=== PATIENT | female | born 1935 | race African-American/Black ===

== ENCOUNTER 2017-02-02 12:34 | Emergency (ER) | payer OTHER ==
[~2017-02-02] VITALS: Ht 160 cm; Wt 70.0 kg
[~2017-02-02 12:34] MED LIST: AMLO10 PO; ASPI81 PO; AZIT250T74 PO; CALTTAB2 PO; IRON SUPPLEMENT PO; LORT5TAB PO; LOVA1TAB47 PO; PREV30CA36 PO; PRIN20TA2 PO; VITA100T15 PO; XYZA5TAB2 PO
[2017-02-02 12:37] VITALS: BP 153/71; PULSE 94; RESP 16; TEMP 97.7; O2SAT 95
--- NOTE | 2017-02-02 12:40 | PD ---
Physical Exam Time Seen by Provider: 12:38 Narrative 81-year-old female with complaint of left arm pain 2 weeks. Denies injury. Pain is from the left shoulder to the elbow. Denies chest pain or shortness breath. Patient seen in triage. Vital signs reviewed. Patient taken to medical bed. Data Data Last Documented VS Vital Signs Date Time Temp Pulse Resp B/P (MAP) Pulse Ox O2 Delivery O2 Flow Rate FiO2 02/02/17 12:37 97.7 94 16 153/71 (98) 95 MDM Supervised Visit with MARCUS: Aylin Willoughby Feb 02, 2017 12:39
[2017-02-02] MEDS ORDERED: CEPH-460 PO (13:57)
--- NOTE | 2017-02-02 13:57 | PD ---
HPI Chief Complaint: Pain: Acute or Chronic Time Seen by Provider: 12:42 Travel History International Travel<30 days: No Contact w/Intl Traveler<30days: No Traveled to known affect area: No History of Present Illness HPI And 81 year-old woman presents emergent part of left shoulder pain. Is been ongoing for a while. In the left anterior shoulder left brachium. She also has a painful red foot and erythema. History Past Medical History Narrative Medical History of breast cancer GERD Hypertension COPD Influenza Vaccination: No Menopausal: Yes Social History Alcohol Use: No Tobacco Use: No Allergies-Medications (Allergen,Severity, Reaction): Coded Allergies: methylprednisolone (Unverified Allergy, Severe, THROAT, FACIAL, BILATERAL EYE SWELLING, 02/02/17) naproxen (Unverified Allergy, Severe, 02/02/17) tramadol (Verified Allergy, Severe, THROAT SWELLING, 02/02/17) mometasone furoate (Verified Allergy, Intermediate, FACIAL SWELLING, ) diatrizoate meglumine (Unverified Allergy, Mild, 02/02/17) gadobenic acid (Unverified Allergy, Mild, 02/02/17) gadodiamide (Unverified Allergy, Mild, 02/02/17) gadoteridol (Unverified Allergy, Mild, 02/02/17) iodixanol (Unverified Allergy, Mild, 02/02/17) iohexol (Unverified Allergy, Mild, 02/02/17) azithromycin (Verified Allergy, Unknown, 02/02/17) Reported Meds & Prescriptions Reported Meds & Active Scripts Active Lortab 5/500 (Acetaminophen/Hydrocodone Bitart) 5 Mg/500 Mg Tab 1 Tab PO Q6HPRN FOR PAIN Reported Zithromax (Azithromycin) 250 Mg Tab 250 Mg PO DIRECTED UNKNOWN DOSE Caltrate 600/Vitamin D 400 (Calcium/Vitamin D) 1 Tab Tab 1 Tab PO DAILY UNKNOWN DOSE [Iron Supplement] 1 Tab PO DAILY Vitamin B12 (Cyanocobalamin) 100 Mcg Tab 0 PO DAILY UNKNOWN DOSE Xyzal (Levocetirizine) 5 Mg Tab 5 Mg PO HS Mevacor (Lovastatin) 20 Mg Tab 20 Mg PO DAILY Prevacid (Lansoprazole) 30 Mg Capcr 30 Mg PO DAILY Aspirin 81 Mg Tab 81 Mg PO DAILY Prinivil (Lisinopril) 20 Mg Tab 20 Mg PO DAILY Norvasc (Amlodipine Besylate) 10 Mg Tab 10 Mg PO DAILY Review of Systems Except as stated in HPI: all other systems reviewed are Neg Physical Exam Narrative GENERAL: Well-appearing 81 year-old woman, no acute distress. SKIN: Warm and dry. CARDIOVASCULAR: Warm and well perfused. RESPIRATORY: Normal rate and effort. MUSCULOSKELETAL: Grossly normal appearance of the left shoulder. She has pain with any range of motion of the shoulder particularly of flexing above the horizontal. Passive range of motion without significant pain. No bony deformity. On the right foot she is a little bit erythema redness laterally and some tenderness there as well. Little bit warm. NEUROLOGICAL: Awake and alert. No gross deficits. Data Data Last Documented VS Vital Signs Date Time Temp Pulse Resp B/P (MAP) Pulse Ox O2 Delivery O2 Flow Rate FiO2 02/02/17 12:37 97.7 94 16 153/71 (98) 95 Orders Orders Shoulder, Complete (>2vws) (02/02/17 ) [facility] Medical Decision Making Medical Screen Exam Complete: Yes Emergency Medical Condition: Yes Differential Diagnosis Shoulder pain, cellulitis, other Narrative Course Medical decision-making new para state year-old woman with left anterior shoulder pain. I suspect some sort of impingement syndrome or arthritis. The right foot also has evidence of very early cellulitis. We'll check x-ray of the shoulder. Recommend supportive treatment. Diagnosis Primary Impression: Left anterior shoulder pain Additional Impression: Cellulitis of foot Patient Instructions: General Instructions Additional Instructions: Take antibiotics as prescribed. Use acetaminophen as needed for pain.. Follow-up with her doctor in the next 2-4 days. Med/Other Pt SpecificInfo: Prescription(s) given Scripts Cephalexin (Keflex) 500 Mg Cap 500 MG PO Q8H for Infection, #30 CAP 0 Refills Prov: Ghassan Brown MD 02/02/17 Disposition: 01 DISCHARGE HOME Condition: Stable Ghassan Brown MD Feb 02, 2017 13:57
--- NOTE | 2017-02-02 13:58 | RADRPT ---
EXAM DATE/TIME: 02/02/2017 13:43 [facility] COMPARISON: No previous studies available for comparison. INDICATIONS : Left shoulder pain with any motion, no known injury. MEDICAL HISTORY : Carcinoma, breast. SURGICAL HISTORY : Breast biopsy. ENCOUNTER: Initial ACUITY: 3 days PAIN SCORE: 7/10 LOCATION: Left shoulder FINDINGS: There is osteophyte formation along the undersurface of the acromioclavicular joint and humeral head. No fracture or dislocation. Left axillary clips. CONCLUSION: Degenerative changes. Dontae Chow MD on February 02, 2017 at 13:56 Board Certified Radiologist. This report was verified electronically.
== END 2017-02-02 14:38 | disposition home or self-care (01) ==
LOC: NEPD 12:34
DX: M25.512 Pain in left shoulder (principal); M79.602 Pain in left arm; L03.115 Cellulitis of right lower limb
CPT/HCPCS: 73030; 99283

== ENCOUNTER 2017-02-05 13:49 | Emergency (ER) | payer OTHER ==
[~2017-02-05] VITALS: Ht 152.4 cm; Wt 71.0 kg
[~2017-02-05 13:49] MED LIST changes: +CEPH-460 PO
[2017-02-05 13:52] VITALS: BP 143/68; PULSE 99; RESP 17; TEMP 99.2; O2SAT 96
[2017-02-05] MEDS ORDERED: ACETAMINOPHEN/HYDROcodone 325 MG/5 MG TAB PO ONE (16:00)
[2017-02-05] MEDS ORDERED: HYDR-3533 PO (16:02)
--- NOTE | 2017-02-05 16:14 | PD ---
HPI Chief Complaint: Musculoskeletal Complaint Time Seen by Provider: 15:41 Travel History International Travel<30 days: No Contact w/Intl Traveler<30days: No Traveled to known affect area: No History of Present Illness HPI Patient comes back to the emergency department complaining of continued left shoulder pain. Patient is going on for a while. Patient states she spoke to her primary care doctor and the fifth of this month regarding this incase she needed a referral to her sap manager but did not get one. Patient was seen in the emergency department 3 days ago for the same complaint and had a complete workup at that time told that it was arthritis. Patient states she's been taking Tylenol using heat with little relief for symptoms. Last night patient reports using ice that allowed the pain to ease up enough that she is able to go to sleep. Patient denies any numbness or tingling. Pain is worse with certain movement of her left shoulder. Patient denies any injury, chest pain, shortness of breath, fevers, nausea, vomiting, knew numbness or tingling, or back pain. PFSH Past Medical History Blood Disorders: No Anxiety: No Depression: No Cancer: No Cardiovascular Problems: Yes High Cholesterol: Yes Chemotherapy: No COPD: Yes Diminished Hearing: Yes (BILAT HEARING AIDS) Endocrine: No Gastrointestinal Disorders: Yes (ACI REFLUX AND DIVERTICULITIS) GERD: Yes Glaucoma: Yes Genitourinary: No Hypertension: Yes Immune Disorder: No Musculoskeletal: Yes Neurologic: Yes (NEUROPATHY) Psychiatric: No Reproductive: Yes (CSECTION AND HYSTERECTOMY) Respiratory: Yes Radiation Therapy: No Tetanus Vaccination: > 5 Years Influenza Vaccination: Yes Menopausal: Yes Past Surgical History Abdominal Surgery: Yes (JI 1990) AICD: No Cardiac Surgery: No Section: Yes Cholecystectomy: Yes (1990) Eye Surgery: Yes (CATARACT REMOVED FROM BOTH EYES) Gynecologic Surgery: Yes Hysterectomy: Yes Pacemaker: No Thoracic Surgery: No Other Surgery: Yes (COLON POLYPS REMOVED / BREAST LUMPECTOMY) Social History Alcohol Use: No Tobacco Use: No Substance Use: No Allergies-Medications (Allergen,Severity, Reaction): Coded Allergies: methylprednisolone (Unverified Allergy, Severe, THROAT, FACIAL, BILATERAL EYE SWELLING, 02/05/17) naproxen (Unverified Allergy, Severe, 02/05/17) tramadol (Verified Allergy, Severe, THROAT SWELLING, 02/05/17) mometasone furoate (Verified Allergy, Intermediate, FACIAL SWELLING, ) diatrizoate meglumine (Unverified Allergy, Mild, 02/05/17) gadobenic acid (Unverified Allergy, Mild, 02/05/17) gadodiamide (Unverified Allergy, Mild, 02/05/17) gadoteridol (Unverified Allergy, Mild, 02/05/17) iodixanol (Unverified Allergy, Mild, 02/05/17) iohexol (Unverified Allergy, Mild, 02/05/17) azithromycin (Verified Allergy, Unknown, 02/05/17) Reported Meds & Prescriptions Reported Meds & Active Scripts Active Lortab (Hydrocodone-Acetaminophen) 5-325 Mg Tab 1 Tab PO Q8HR PRN Review of Systems Except as stated in HPI: all other systems reviewed are Neg Physical Exam Narrative GENERAL: Well-developed, overly nourished, in no acute distress, and non-ill appearing. SKIN: Focused skin assessment warm and dry. HEAD: Atraumatic. Normocephalic. EYES: Pupils equal and round. EOMI. No scleral icterus. No injection or drainage. ENT: No nasal bleeding or discharge. Mucous membranes pink and moist. NECK: Trachea midline. Supple. No nuclear rigidity. CARDIOVASCULAR: Radial pulses 2+, intact, and equal bilaterally. Capillary refill less than 2 seconds. RESPIRATORY: No accessory muscle use. No respiratory distress. MUSCULOSKELETAL: No obvious deformities. No clubbing. No cyanosis. No edema. Decreased range of motion left shoulder secondary to pain. Patient reports to palpation anterior aspect of left shoulder. NEUROLOGICAL: Awake and alert. No obvious cranial nerve deficits. Motor grossly within normal limits. Normal speech. PSYCHIATRIC: Appropriate mood and affect; insight and judgment normal. Data Data Last Documented VS Vital Signs Date Time Temp Pulse Resp B/P (MAP) Pulse Ox O2 Delivery O2 Flow Rate FiO2 02/05/17 13:52 99.2 99 17 143/68 (93) 96 Room Air Orders Orders Acetamin-Hydrocod 325-5 Mg ([place] 5-325 (02/05/17 16:00) Electrocardiogram (02/05/17 15:34) MDM Medical Decision Making Medical Screen Exam Complete: Yes Emergency Medical Condition: Yes Medical Record Reviewed: Yes Interpretation(s) EKG reviewed by Dr. Miller shows sinus rhythm ventricular rate of 90. No STEMI Differential Diagnosis Musculoskeletal pain, arthritis, bursitis, frozen shoulder, other Narrative Course The patient presented complaining of shoulder pain. There was no history of recent fall or trauma. No fevers or other evidence to suspect infectious processes, abscess, osteomyelitis etc. I suspect the pain is mechanical in nature. Clinical suspicion, plan of care and management was discussed with the patient. The patient was instructed to follow up with their health care provider. The patient was also instructed to return if the pain worsened, changed, chest pain, breath, fevers, or developed weakness. The patient agreed with plan. Patient in no obvious distress upon re-evaluation. Discussed patient with Dr. Miller prior to discharge, who is in agreement with plan of care and disposition. Patient was asked if they wanted to speak to my attending, which the patient did not wish to do at this time. Any questions/concerns in reference to patient diagnosis/condition discussed and clarified prior to patient's discharge. Reinforced sheer importance of close follow up with patient's primary physician or primary care clinic. Instructed patient to return to ED immediately, if symptoms return/worsen. Patient showed understanding of above instructions. Further instructions and recommendations were detailed in discharge paperwork. Patient left without difficulty out of ED at discharge. Diagnosis Primary Impression: Left shoulder pain Qualified Codes: M25.512 - Pain in left shoulder; G89.29 - Other chronic pain Patient Instructions: Adhesive Capsulitis (ED), General Instructions, Shoulder Pain (ED) Additional Instructions: Follow-up with your primary care physician and/or orthopedics next week for reevaluation. Take all medication as prescribed. Return to the emergency department if symptoms get worse. Med/Other Pt SpecificInfo: Prescription(s) given Scripts Hydrocodone-Acetaminophen (Lortab) 5-325 Mg Tab 1 TAB PO Q8HR Y for PAIN GREATER THAN 7, #7 TAB 0 Refills Prov: Jenni Miller MD 02/05/17 Disposition: 01 DISCHARGE HOME Condition: Stable Vikram Patel Feb 05, 2017 16:14
--- NOTE | 2017-02-05 16:47 | EKG ---
Date Performed: 02/05/2017 Time Performed: 15:34:20 PTAGE: 81 years EKG: Sinus rhythm POSSIBLE LEFT ATRIAL ENLARGEMENT LEFT AXIS DEVIATION ABNORMAL ECG PREVIOUS TRACING : 03/22/2009 12.31 Compared to previous tracing, heart rate has increased. DOCTOR: Elia Neumann Interpretating Date/Time 02/05/2017 16:46:20
== END 2017-02-05 22:19 | disposition home or self-care (01) ==
LOC: NEPE 13:49
DX: M25.512 Pain in left shoulder (principal); M75.02 Adhesive capsulitis of left shoulder; G89.29 Other chronic pain; R94.31 Abnormal electrocardiogram [ECG] [EKG]; I10 Essential (primary) hypertension; E78.00 Pure hypercholesterolemia, unspecified; J44.9 Chronic obstructive pulmonary disease, unspecified; K21.9 Gastro-esophageal reflux disease without esophagitis
CPT/HCPCS: 93005; 99283

== ENCOUNTER → 2017-10-13 | Outpatient (CLI) | payer OTHER ==
[~2017-10-13] MED LIST changes: -AMLO10 PO; -ASPI81 PO; -AZIT250T74 PO; -CALTTAB2 PO; -CEPH-460 PO; +HYDR-3533 PO; -IRON SUPPLEMENT PO; -LORT5TAB PO; -LOVA1TAB47 PO; -PREV30CA36 PO; -PRIN20TA2 PO; -VITA100T15 PO; -XYZA5TAB2 PO
--- NOTE | 2017-10-14 15:31 | EKG ---
Date Performed: 10/13/2017 Time Performed: 15:13:12 PTAGE: 82 years EKG: Sinus rhythm MARKED LEFT AXIS DEVIATION ABNORMAL ECG Since the PREVIOUS TRACING , no significant change noted PREVIOUS TRACIN02/05/2017 15.34 DOCTOR: Emilie Rock Interpretating Date/Time 10/14/2017 15:30:01
== END ==
LOC: HEEG 14:36
DX: R07.89 Other chest pain (principal); R94.31 Abnormal electrocardiogram [ECG] [EKG]
CPT/HCPCS: 93005